=== PATIENT | female | born 1990 | race Caucasian/White ===

== ENCOUNTER 2016-11-22 20:53 | Emergency (ER) | payer BC, OTHER ==
[~2016-11-22] VITALS: Ht 154.9 cm; Wt 63.5 kg
[~2016-11-22 20:53] MED LIST: PREN1TAB49
[2016-11-22 20:58] VITALS: BP_SYST 110
--- NOTE | 2016-11-22 20:58 | NUR ---
PT IN WAITING ROOM AWAITING AVAILABLE BED. STABLE.
--- NOTE | 2016-11-22 22:00 | NUR ---
Patient to ER bed 5 to gown for evaluation. Side rails up. Report given to [place] JEFFERY.
--- NOTE | 2016-11-22 22:05 | NUR ---
Pt states that she has had sore throat with non productive cough for three days. AAOX4. Will continue to monitor. No other injuries or complaints mentioned. No distress noted.
--- NOTE | 2016-11-22 22:05 | NUR ---
Note janegarry in EDM - 11/22/16 at 2227 by GIANLUCA Davis beniteztes that she has had sore throat with non productive cough for three days. AAOX4. Will continue to monitor. No other injuries or complaints mentioned. No distress noted.
--- NOTE | 2016-11-22 23:00 | NUR ---
ER at bedside examining patient.
[2016-11-22 23:22] VITALS: BP_SYST 112
--- NOTE | 2016-11-22 23:22 | NUR ---
Patient given written and verbal discharge instructions and verbalizes understanding. ER MD discussed with patient the results and treatment provided. Patient in stable condition. ID arm band removed. Rx of amoxicillin given. Patient educated on pain management and to follow up with PMD. Pain Scale 0/10. Opportunity for questions provided and answered.
== END 2016-11-22 23:22 | disposition home or self-care (01) ==
LOC: SED 20:53
DX: J02.9 Acute pharyngitis, unspecified (principal)
CPT/HCPCS: 99283